=== PATIENT | female | born 1965 | race Caucasian/White ===

== ENCOUNTER 2024-08-21 10:14 | Outpatient (AMB) | payer MEDICAID, SELFPAY ==
[2024-08-21 10:25] VITALS: BP 130/89; PULSE 68; RESP 17; TEMP 36.3; O2SAT 97; BMI 36.8
--- NOTE | 2024-08-21 10:25 | PD.ORTHCLVIS ---
Vital signs 08/21/24 10:25 Height 1.65 m Height Method Measured Weight 100.272 kg Weight Measurement Method Standing Scale BMI 36.8 BP 130/89 H Blood Pressure Source Automatic Cuff Blood Pressure Location Right Upper Arm Position Sitting Respiration 17 Pulse 68 Pulse Source Monitor Temp 97.3 F Temp Source Oral Pulse Oximetry (%) 97 Oxygen Delivery Method Room Air Med/Allergies Allergies & Medications Allergies No Known Allergies Allergy (Verified 10/14/23 11:20) Subjective Visit Visit for: follow up visit and knee Immunization / Flu Flu Vaccine in the Last 12 Months: No Flu Vaccine Exclusion Criteria: Already Received History of Present Illness Chief complaint: PT HERE IN OFFICE 6 MONTH FOLLOW UP NO COMPLAINTS FEELS GOOD PAtient Is a 58-year-old female status post right total knee replacement. She is approximately 12 months status post surgery. She is doing well. She has no issues at all Personal History Red flag PMH: smoker (NON SMOKER ) Pain Pain level (0-10): 0 Pain duration: NONE Pain quality: sharp and burning Pain timing: increases with activity and stairs Associated signs & symptoms: none Ambulatory data Ambulatory device: none Treatments Number of Physical Therapy sessions: 7 Improvement with PT: Yes Review of Systems Review of Systems: All systems negative unless otherwise noted in HPI. Exam Exam Patient is in no acute distress and is cooperative with the examination today. Patient has a normal mood and affect. Breathing is nonlabored. In no respiratory distress. Bilateral extremities were evaluated and demonstrates sensation intact to light touch. Palpable pedal pulses are present. No significant edema is present. Right knee incision is clean dry intact. Range of motion 0 to 105 degrees. The knee feels stable to varus and valgus stress as well as AP translation X-rays demonstrate a cementless right total knee replacement in Position. The patient also Moderate osteoarthritis on the left Assessment and Plan Problem List (1) Status post total right knee replacement: Status: Acute Plan: Patient is doing well status post right total knee replacement. She has very little issues. Will see her in approximately 1 year for routine follow-up with x-rays (2) Bilateral knee pain: Status: Acute Office Procedures GNS Level of Care Nursing/Assessment Patient Status: Established Patient Nursing Assessment/Reassesment: BP Monitoring, Medication Reconciliation, Update PMH in EMR and Vital Signs Coordination of Care: Complex Care and Chronic Disease 1-5, Consent,records obtained, informed consent, Lab and Imaging orders and Results/Orders obtained Established Patient Charge Established Patient Point Assignment: 95 Established Patient Point Charge: EP Level 3 (80-115) Past Medical History Past Medical History Have you ever been diagnosed with any of the following: Neurological Problems Seizures: No Cardiology Problems Hypercholesterolemia: Yes Congestive Heart Failure: No Respiratory Problems Chronic Obstructive Pulmonary Disease (COPD): No Stomache/Intestinal Problems Ulcer: Yes Gastroesophageal Reflux Disease: Yes Obesity: Yes Genital/Urinary Problems Renal Disease: No Reproductive Problems Previous Pregnancies: Yes Musculoskeletal Problems Arthritis: Yes Head,Eye,Nose,Throat Problems Glaucoma: Yes (had treatment) Endocrine Problems Diabetes Mellitus Type 1: No Diabetes Mellitus Type 2: No Blood Problems Anemia: Yes Other Problems Hospitalization: Yes (surgery) Shingles: No Blood Transfusions: No Blood Transfusion Reaction: No Anesthesia Reactions: No Cancer: No
== END 2024-08-21 10:42 | disposition home or self-care (01) ==
LOC: HODSRG 10:14
PROVIDERS: PCP Nurse Practitioner Family; Referring Provider Nurse Practitioner Family; Supervising Provider Orthopaedic Surgery Adult Reconstructive Orthopaedic Surgery; Visit Provider Orthopaedic Surgery Adult Reconstructive Orthopaedic Surgery
DX: Z96.651 Presence of right artificial knee joint (principal); M25.562 Pain in left knee; M25.561 Pain in right knee; E78.00 Pure hypercholesterolemia, unspecified; K21.9 Gastro-esophageal reflux disease without esophagitis
CPT/HCPCS: 99213; G0463

== ENCOUNTER → 2024-10-09 | Outpatient (CLI) | payer MEDICAID, SELFPAY ==
--- NOTE | 2024-10-09 14:32 | XR_ITS ---
Examination: Lumbar spine, 5 views Technique: Lumbar spine AP, lateral, coned lateral lower lumbar spine, bilateral obliques 5 views Exam date and time: October 09, 2024 1447 hours INDICATIONS: Low back pain beginning 3 weeks ago. FINDINGS: Moderate osteopenia Lumbar dextroscoliosis 18 degrees Diffuse significant facet arthropathy Moderate chronic osteoporotic compression L2 No acute lumbar fracture Moderate disc narrowing L2-L3 Grade 1 anterolisthesis L4 on L5 IMPRESSION: Moderate osteopenia Chronic osteoporotic compression L2 Moderate degenerative disc disease L2-L3
--- NOTE | 2024-10-09 14:32 | XR_ITS ---
Examination: Thoracic spine 3 views Technique one AP lateral coned lateral upper dorsal spine 3 views Exam date and time: October 09, 2024 1453 hours Comparison November 05, 2016 INDICATIONS: Upper back pain beginning 3 weeks ago. FINDINGS: Upper thoracic dextroscoliosis 6 degrees Lower thoracic levoscoliosis 10 degrees Prominent osteopenia No acute thoracic fracture Mild chronic osteoporotic wedging mid dorsal vertebral bodies Mild diffuse thoracic degenerative disc disease IMPRESSION: Scoliosis as above Prominent osteopenia Mild diffuse thoracic degenerative disc disease
== END | disposition home or self-care (01) ==
PROVIDERS: PCP Nurse Practitioner Family; Referring Provider Nurse Practitioner Family; Visit Provider Nurse Practitioner Family
DX: M41.84 Other forms of scoliosis, thoracic region (principal); M85.88 Other specified disorders of bone density and structure, other site; M51.34 Other intervertebral disc degeneration, thoracic region; G95.20 Unspecified cord compression; M51.369 Other intervertebral disc degeneration, lumbar region without mention of lumbar back pain or lower extremity pain
CPT/HCPCS: 72072; 72110

== ENCOUNTER → 2024-11-16 | Outpatient (CLI) | payer MEDICAID, SELFPAY ==
--- NOTE | 2024-11-16 10:00 | XR_ITS ---
Examination: MRI thoracic spine without contrast. Date and time of exam: November 16, 2024 0953 hours INDICATIONS: Onset mid back pain beginning 2 months ago Technique: Multiple sagittal and axial images of the thoracic spine have been obtained. T1 weighted localizer, sagittal T2 weighted images, TR 30-50, TE 148, T1 weighted sagittal images, TR 650, TE 14, T2-weighted transverse images, TR 6770, TE 142 Findings: Mild kyphosis dorsal spine, secondary to moderately severe compression fracture T7, chronic Diffuse thoracic disc narrowing Diffuse thoracic disc desiccation No focal thoracic disc protrusion impinging upon the thoracic cord Impression: Moderately severe chronic compression fracture T7 producing mild kyphosis deformity
--- NOTE | 2024-11-16 10:30 | XR_ITS ---
Examination: MRI lumbar spine without contrast Date and time of exam: November 16, 2024 1035 hours INDICATIONS: Lower back pain beginning 2 months ago TECHNIQUE: Multiple axial sagittal MR lumbar spine images FINDINGS: Moderate chronic compression L2 vertebral body, reduction in height 50% Grade 1 anterolisthesis L4 on L5 Diffuse lumbar disc desiccation No acute lumbar fracture L5-S1 no disc protrusion L4-L5 no disc protrusion L3-L4 no disc protrusion L2-L3 no disc protrusion L1-L2 no disc protrusion Impression: Chronic moderately severe compression fracture L2
== END | disposition home or self-care (01) ==
PROVIDERS: PCP Nurse Practitioner Family; Referring Provider Nurse Practitioner Family; Visit Provider Nurse Practitioner Family
DX: M54.50 Low back pain, unspecified (principal); Z13.820 Encounter for screening for osteoporosis; M48.54XA Collapsed vertebra, not elsewhere classified, thoracic region, initial encounter for fracture; M40.294 Other kyphosis, thoracic region; M48.56XA Collapsed vertebra, not elsewhere classified, lumbar region, initial encounter for fracture
CPT/HCPCS: 72146; 72148

== ENCOUNTER → 2024-11-20 | Outpatient (CLI) | payer MEDICAID, SELFPAY ==
--- NOTE | 2024-11-20 13:25 | XR_ITS ---
Examination: Bone densitometry Date and time of exam:November 20, 2024 at 1340 hrs. Indications: Hysterectomy age 36 Technique: Lumbar spine and hip total bone mineralization values of an calculated. Peak reference and age match control results have been displayed. Findings: Lumbar spine total bone mineralization is0.851 gm/cm2. This is 1.8 standard deviations below peak reference. This is 0.5 standard deviations below age-matched controls. Hip total bone mineralization is 1.054 gm/cm2 This is 0.7 standard deviations above peak reference. This is 1.5 standard deviations above age-matched controls Impression: There is osteopenia based on lumbar spine measurements. There is normal mineralization based on hip measurements
== END | disposition home or self-care (01) ==
LOC: CDIM 13:11
PROVIDERS: Referring Provider Nurse Practitioner Family; Visit Provider Nurse Practitioner Family
DX: M85.88 Other specified disorders of bone density and structure, other site (principal); Z13.820 Encounter for screening for osteoporosis
CPT/HCPCS: 77080

== ENCOUNTER → 2025-04-04 | Outpatient (CLI) | payer MEDICAID, SELFPAY ==
--- NOTE | 2025-04-04 16:29 | XR_ITS ---
Examination: Abdomen sonogram, complete Date and time of exam: April 04, 2025 1644 hours INDICATIONS: Epigastric pain beginning 2 months ago. Technique: Multiple real-time grayscale transabdominal sonographic images of the abdomen have been obtained. Findings: Absent gallbladder Normal common bile duct 0.4 cm Pancreatic head 2.9 cm Aorta not enlarged. Liver is 16.8 cm no focal liver lesions. Normal hepatopedal portal venous flow. Patent IVC. Right kidney 7.5 cm renal cortex 1.6 cm Left kidney 9.1 cm renal cortex 2.4 cm Moderate renal parenchymal scar formation. Spleen 8.6 cm IMPRESSION: Normal common bile duct Mild hepatomegaly Moderate bilateral renal parenchymal scar formation
== END | disposition home or self-care (01) ==
PROVIDERS: PCP Nurse Practitioner Family; Referring Provider Nurse Practitioner Family; Visit Provider Nurse Practitioner Family
DX: R16.0 Hepatomegaly, not elsewhere classified (principal); N28.89 Other specified disorders of kidney and ureter
CPT/HCPCS: 76700